=== PATIENT | female | born 1945 | race Caucasian/White ===

== ENCOUNTER 2016-12-28 21:36 | Inpatient (IN) ==
[2016-12-28] MEDS ORDERED: MORPHINE 2 MG/1 ML SYRINGE ONE (21:53)
[2016-12-28] MEDS ORDERED: ONDANSETRON 4 MG/2 ML VIAL IV STA (21:54)
[2016-12-28] MEDS ORDERED: NITROGLYCERIN 2% OINT 1 INCH/GM PACK TOP STA (21:54)
[2016-12-28] MEDS ORDERED: METOPROLOL TARTRATE 5 MG/5 ML VIAL IV STA ×2 (21:54→23:02)
[2016-12-28] MEDS ORDERED: ASPIRIN 325 MG TABLET PO STA (21:54)
[2016-12-28] MEDS ORDERED: MORPHINE 2 MG/1 ML SYRINGE IV STA (21:54)
[2016-12-28] MEDS ORDERED: ENOXAPARIN 80 MG/0.8 ML SYRINGE SUBCUT STA (21:58)
--- NOTE | 2016-12-28 21:58 | Emergency Department Note ---
Arrival - Arrival Chief Complaint: Chest Pain Stated Complaint: Chest pain ED Nursing Triage Note: Pain complains of chest pain with left arm weakness that started about thirty minutes ago. Denies shortness of breath. Patient received 4mg morphine, 1 ASA tab, and 4 SL nitro tabs by EMS+Nausea/vomiting. History of triple bypass surgery with 3 cardiac catheterization, 2 stents, HTN, cervical cancer, and chronic diarrhea. Patient is scheduled for a lower GI scope on . Dr. Ngo is patient's busser and Dr. Hamilton is patient's PCP. Mode of Arrival: Stretcher Limitations: No Limitations Source: Patient Time Seen by Provider: 12/28/16 21:54 - History of Present Illness HPI Narrative: This 71-year-old white female presents with onset of central chest pain radiating to left arm of onset about 30 minutes ago associated with nausea but no shortness of breath or sweats. The patient has a significant history of bypass surgery as well as multiple catheterizations and stents followed by Dr. Ngo. Currently she complains of a 5 out of 10 grade for pain. Onset (ago): minute(s) (Patient presents 30 minutes post onset of symptoms) Date of Last Menstrual Period: HYSTERECTOMY Allergies/Adverse Reactions: Allergies Allergy/AdvReac Type Severity Reaction Status Date / Time Sulfa (Sulfonamide AdvReac Nausea Verified 10/04/15 13:40 Antibiotics) Home Medications: Home Medications Medication Instructions Recorded Confirmed Type Carvedilol [Coreg] 6.25 mg PO BID 11/29/14 10/08/15 History Desloratadine [Clarinex] 5 mg PO DAILY PRN 11/29/14 10/08/15 History Furosemide Tab [Lasix Tab] 40 mg PO DAILY 11/29/14 10/08/15 History Isosorbide Mononitrate [Imdur] 120 mg PO DAILY 11/29/14 10/08/15 History Losartan Potassium 25 mg PO DAILY 11/29/14 10/08/15 History Magnesium Oxide [Magnesium] 400 mg PO BID 11/29/14 10/08/15 History Pantoprazole Tab [Protonix Tab] 40 mg PO DAILY 11/29/14 10/08/15 History Potassium Chloride [Klor-Con M20] 20 meq PO DAILY 11/29/14 10/08/15 History Ranolazine [Ranexa] 500 mg PO BID 11/29/14 10/08/15 History Sertraline HCl 100 mg PO DAILY 11/29/14 10/08/15 History Ticagrelor [Brilinta] 90 mg PO BID 11/29/14 10/08/15 History busPIRone [Buspar] 5 mg PO TID 03/11/15 10/08/15 History Aspirin EC Tab 81 mg PO BEDTIME 10/04/15 10/08/15 History Nitroglycerin [Nitroglycerin SL 0.4 mg SL Q5M PRN #100 tablet 10/05/15 10/08/15 Rx Tab] Atorvastatin Calcium 80 mg PO DAILY 10/08/15 10/08/15 History Medical,Surgical,& Family Hx - Medical History Cardio: History of: CAD, Hypertension, [place], Cardiovascular Problems Neurology: No history of: Seizures Endocrine: History of: Dyslipidemia Musculoskeletal: History of: Musculoskeletal Problems Reproductive: History of: Reproductive Problems - Surgical History Cardiac Surgeries: Sugical HX of: Femoral-Popliteal Bypass Graft, Cardiac Catheterization (x2 with 2 stents placed) HEENT Surgeries: Comment Only: Eye Surgery (cataract surg 10/2014) Abdominal Surgeries: Surgical HX of: Cholecystectomy Reproductive Surgeries: Surgical HX of;: Section, Gynecologic Surgery, Hysterectomy Orthopedic Surgeries: Surgical HX of;: Total Knee Replacement (l knee replacrment) - Family History Family History: Reports;: Family Cancer (mother, female reproductive, colon), Family Hypertension Denies;: Family Diabetes, Family Psychiatric Problems, Family Stroke - Social History Smoking Status: Never smoker Frequency of Alcohol Use: None Type of Drug Use: None Exam Vital Signs: Vital Signs Temperature 97.4 F L 12/28/16 21:36 Pulse Rate 77 12/28/16 21:36 Respiratory Rate 18 12/28/16 21:36 Blood Pressure 162/90 12/28/16 21:36 O2 Sat by Pulse Oximetry 100 12/28/16 21:36 Course - Reevaluation(s) Reevaluation #1: Discussed with patient the need for hospitalization. - Consultations Consultation #1: Discussed with Dr. Cherry who will admit to telemetry. Results - Labs CBC & BMP: 12/28/16 21:54 12/28/16 21:54 Labs: I have reviewed the laboratory noted the elevated troponin and BNP - Impressions EKG: Sinus rhythm at 66 with normal DC interval and QRS duration. Inferolateral ST abnormalities consistent with inferolateral ischemia. No acute injury pattern noted. - Diagnostic Findings Procedure: Chest x-ray: image reviewed by me, report reviewed by me (Status post median sternotomy, borderline cardiomegaly, clear lung barakat. No acute injury.) Disposition Clinical Impression: Inferolateral ischemia, Coronary artery disease/status post CABG, Hyperlipidemia, Hypertension Case discussed with: patient, patient's family Disposition: Still a Patient Condition: Guarded Time of Disposition: 23:06
[2016-12-28 22:01] LABS: Basophils % 0.5 % (0.0-0.8); Eosinophils # 0.2 10*3/uL (0.0-0.87); Eosinophils % 2.3 % (0.00-10.9); Hematocrit 40.7 VOL% (35.7-47.0); Hemoglobin 13.7 GM/DL (12.0-16.0); Immature Granulocytes % 0.1 %; Immature Granulocytes Absolute 0.01 #; Lymphocytes # 3.6 10*3/uL (1.4-4.0); Lymphocytes % 41.8 % (21.3-54.2); Mean Corpuscular HGB Conc 33.7 GM/DL (32-36); Mean Corpuscular Hemoglobin 30 PG (27-34); Mean Corpuscular Volume 88.9 FL (87-102); Mean Platelet Volume 9.8 FL (9.6-12.0); Monocytes # 0.7 10*3/uL (0.11-0.8); Monocytes % 7.5 % (1.7-12.7); Neutrophils # 4.1 10*3/uL (1.4-7.4); Neutrophils % 47.8 % (38.7-73.9); Platelet Count 268 T/CUMM (130-400); Red Blood Count 4.58 MC/CUMM (3.8-5.5); Red Cell Distribution Width 13.1 % (9.3-17.3); White Blood Count 8.7 T/CUMM (4-12)
[2016-12-28] MEDS ORDERED: METOPROLOL TARTRATE 5 MG/5 ML VIAL IV ONE ×2 (22:03→23:04)
[2016-12-28] MEDS ORDERED: ONDANSETRON 4 MG/2 ML VIAL ONE (22:03)
[2016-12-28] MEDS ORDERED: ENOXAPARIN 80 MG/0.8 ML SYRINGE SUBCUT ONE (22:03)
[2016-12-28] MEDS ORDERED: NITROGLYCERIN 2% OINT 1 INCH/GM PACK TOP ONE (22:03)
[2016-12-28 22:22] LABS: Troponin I Only 0.153 NG/ML (0.00-0.045)
[2016-12-28 22:23] LABS: Alanine Aminotransferase 22 U/L (13-56); Albumin 3.8 G/DL (3.4-5.0); Alkaline Phosphatase 80 U/L (45-117); Aspartate Amino Transferase 18 U/L (0-37); Blood Urea Nitrogen 17 MG/DL (7-18); Calcium 9.1 MG/DL (8.5-10.1); Glucose 127 MG/DL (74-106); Osmolality,Calculated 282.4 MOS/KG (273-304); Potassium 3.6 MMOL/L (3.5-5.1); Sodium 140 MMOL/L (136-145); Total Protein 6.6 G/DL (6.4-8.3)
[2016-12-28 22:26] LABS: Troponin I Only 0.135 NG/ML (0.00-0.045)
[2016-12-28] MEDS ORDERED: NITROGLYCERIN DRIP 50 MG/250 ML BOTTLE IV ONE (22:43)
[2016-12-28] MEDS ORDERED: NITROGLYCERIN DRIP 50 MG/250 ML BOTTLE IV SCH ×2 (23:30)
[2016-12-29 00:46] LABS: Apearance,Urine CLEAR (Clear); Bilirubin,Urine Negative (Negative); Blood, Urine Small mg/dL (Negative); Glucose,Urine (UA) Negative (Negative); Ketones,Urine Negative (Negative); Mucus,Urine Occasional /LPF (Occasional); Nitrite,Urine Negative (Negative); Protein,Urine Negative; RBC,Urine 5 /HPF (0-4); Squamous Epithelial Cell,Urine Occasional /HPF (0-10); Urine Color Yellow (Yellow); Urine Specific Gravity 1.012 (1.001-1.035); Urine Urobilinogen < 2.0 EU/DL (0.2-1.0); WBC,Urine <1 /HPF (0-6)
--- NOTE | 2016-12-29 02:19 | EKG Report ---
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
[2016-12-29] MEDS: ONDANSETRON 4 MG/2 ML VIAL IV PRN ×3 (02:32→18:32)
[2016-12-29] MEDS: HYDROmorphone 2 MG/1 ML VIAL IV PRN ×2 (02:51→18:01)
[2016-12-29 03:53] LABS: CKMB % 13.2 %
[2016-12-29 03:55] LABS: Troponin I Only 6.09 NG/ML (0.00-0.045)
--- NOTE | 2016-12-29 06:30 | EKG Report ---
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
[2016-12-29 07:07] LABS: CKMB % 14.6 %
[2016-12-29 07:17] LABS: Troponin I Only 7.65 NG/ML (0.00-0.045)
--- NOTE | 2016-12-29 07:40 | EKG Report ---
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
--- NOTE | 2016-12-29 08:16 | XRay Report ---
XR chest 1V portable Indication: Chest pain Comparison: Chest x-ray October 04, 2015 Technique: Single frontal view of the chest. Findings: Continued mild cardiomegaly status post sternotomy. There is some bilateral interstitial prominence suspicious for mild interstitial pulmonary edema. Visualized osseous and surrounding soft tissue structures appear grossly unchanged. IMPRESSION: As above. PROCEDURE INTERPRETED AT [facility] DEPARTMENT OF RADIOLOGY Final Report Signed by: Dr Armen Dunn
[2016-12-29] MEDS: ASPIRIN EC 81 MG TABLET PO SCH (08:33)
[2016-12-29] MEDS: CARVEDILOL 6.25 MG TABLET PO SCH ×2 (08:34→17:44)
--- NOTE | 2016-12-29 08:45 | XRay Report ---
Exam: XR chest 1V portable Date: 12/29/2016 4:00 AM Indication: Shortness of breath Comparison: 12/28/2016 Technical: AP Findings: Sternotomy wires are present. Mild shunt vascularity with interstitial edema. External cardiac leads are present. Mediastinum is intact. Bony structures are otherwise unremarkable. Impression: 1. Worsening radiographic findings with increasing interstitial edema with underlying cardiac enlargement previous sternotomy.. This could represent a component of cardiac decompensation PROCEDURE INTERPRETED AT [facility] DEPARTMENT OF RADIOLOGY Final Report Signed by: Dr. Rommel Bro
--- NOTE | 2016-12-29 08:49 | Cardiology History & Physical ---
Assessment and Plan - Time spent with patient Time spent with patient: Greater than 30 minutes (1) Non-ST elevated myocardial infarction Status: Acute Assessment and plan: SEE PLAN OF CARE LISTED BELOW. Current Visit: Yes (2) Hypertension Status: Chronic Assessment and plan: SEE PLAN OF CARE LISTED BELOW. Current Visit: Yes (3) Coronary artery disease Status: Chronic Assessment and plan: SEE PLAN OF CARE LISTED BELOW. Current Visit: No (4) Dyslipidemia Status: Chronic Assessment and plan: SEE PLAN OF CARE LISTED BELOW. Current Visit: No (5) History of coronary artery bypass graft Status: Chronic Assessment and plan: SEE PLAN OF CARE LISTED BELOW. Current Visit: No (6) History of coronary artery stent placement Status: Chronic Assessment and plan: SEE PLAN OF CARE LISTED BELOW. 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 Ngo PCP: Dr. Hamilton Ms. Zimmerman is a 71 year old female with known coronary artery disease, routinely followed by Dr. Ngo. Cardiac risk factors include: Known CAD, hypertension, dyslipidemia, family history of premature CAD and advanced age. Lifetime non-smoker. Past medical history includes: Vaginal cancer, now in remission. Patient is status post CABG with SVG to LAD, CONRO[place] graft to circumflex and right MAK to RCA. Heart catheterization was last performed in September 2015. At that time she was noted to have 2 of 3 grafts widely patent. Widely patent LAD graft stents. Severe left north fork coronary artery disease with an angiographically normal-appearing right coronary artery. Normal left ventricular size and function Most recent stress test was performed August 2016. This revealed no evidence of ischemia. Scan suggested low risk for future cardiovascular events. Normal LV systolic function. EF 73%. She last saw Dr. Ngo in the cardiology clinic October 2016. At that time, she reviewed recent results of echocardiogram. Echocardiogram revealed normal LV function, low- grade mitral and tricuspid insufficiency. Patient presented to [facility] yesterday evening with complaints of midsternal chest pain. She describes this pain as a heaviness type pain that radiates to her left arm. This began yesterday evening when she got up to make her some coffee. Associated with nausea, vomiting and diaphoresis. She took a sublingual nitro which did not relieve her pain. She summoned EMS as she felt that she needed to be further evaluated in the emergency department. Her pain was very similar as before when she underwent PCI. She is unable to identify any alleviating or aggravating factors. Unsure if there was exertional component as she says she was unable to walk during that time. When EMS arrived to her home she received morphine. She reports that after receiving morphine her pain was relieved. Altogether her pain lasted approximately 1 hour. She has been admitted under cardiology's service and housed in the ICU. Of note, she does tell me that she was told to hold her Brilinta for upcoming C scope. This has been on hold for approximately 1 week. Most recent PCI was September 2015. Patient seen and examined in the ICU. She is currently receiving IV nitroglycerin for pain control. Pain is well controlled this morning. Cardiac biomarkers are elevated. Troponin VII 0.6 this morning. CK-MB 85.8 with total creatinine kinase 584. Renal function is stable with creatinine of 1.1. Patient reports that her chest pain is well controlled currently. She did receive a 1 dose of therapeutic Lovenox in the emergency department. She is hemodynamically stable. I have discussed the risk and benefits of left heart catheterization with the patient. She is agreeable to proceed. I have discussed this patient with Dr. Guerra. She will be kept n.p.o. and will plan for heart catheterization today. She did receive therapeutic Lovenox. Continue dual antiplatelet therapy, beta blockade, lipid-lowering agent, nitrates and ARB. Further plan and addendum to follow per Dr. Guerra. IMPRESSION AND PLAN: 1. NON-ST ELEVATION PR - I have discussed the risk and benefits of left heart catheterization with the patient. She is agreeable to proceed. I have discussed this patient with Dr. Guerra. She will be kept n.p.o. and will plan for heart catheterization today. She did receive therapeutic Lovenox. Continue dual antiplatelet therapy, beta blockade, lipid-lowering agent, nitrates and ARB. Further plan and addendum to follow per Dr. Guerra 2. HISTORY OF CAD, STATUS POST CABG- Continue dual antiplatelet therapy, ARB, beta blockade, nitrates and lipid-lowering agent. 3. HYPERTENSION - Well controlled. Continue current plan of care. Will adjust medications as needed this hospitalization. 4. DYSLIPIDEMIA - Continue lipid-lowering agent. Lipid panel in the morning. Home Medications Medication Instructions Recorded Confirmed Type Carvedilol [Coreg] 6.25 mg PO BID 11/29/14 12/29/16 History Desloratadine [Clarinex] 5 mg PO DAILY PRN 11/29/14 12/29/16 History Furosemide Tab [Lasix Tab] 40 mg PO DAILY 11/29/14 12/29/16 History Isosorbide Mononitrate [Imdur] 120 mg PO DAILY 11/29/14 12/29/16 History Losartan Potassium 25 mg PO DAILY 11/29/14 12/29/16 History Pantoprazole Tab [Protonix Tab] 40 mg PO DAILY 11/29/14 12/29/16 History Potassium Chloride [Klor-Con M20] 20 meq PO DAILY 11/29/14 12/29/16 History Ranolazine [Ranexa] 500 mg PO BID 11/29/14 12/29/16 History Sertraline HCl 100 mg PO DAILY 11/29/14 12/29/16 History Ticagrelor [Brilinta] 90 mg PO BID 11/29/14 12/29/16 History busPIRone [Buspar] 5 mg PO TID 03/11/15 12/29/16 History Aspirin EC Tab 81 mg PO BEDTIME 10/04/15 12/29/16 History Nitroglycerin [Nitroglycerin SL 0.4 mg SL Q5M PRN #100 tablet 10/05/15 12/29/16 Rx Tab] Atorvastatin Calcium 10 mg PO DIRECTED 10/08/15 12/29/16 History Allergies Allergy/AdvReac Type Severity Reaction Status Date / Time Sulfa (Sulfonamide AdvReac Nausea Verified 10/04/15 13:40 Antibiotics) - Constitutional Constitutional: Present: as per HPI, fatigue, weakness. Absent: chills, fever(s ), frequent falls, headache(s), lethargy, malaise, weight gain, weight loss - Cardiovascular Cardiovascular: Present: as per HPI, chest pain at rest, diaphoresis, dyspnea, dyspnea on exertion, radiating jaw, neck or arm pain. Absent: edema, lightheadedness, orthopnea, palpitations, PND - Respiratory Respiratory: Present: as per HPI, dyspnea, dyspnea on exertion. Absent: cough, hemoptysis, wheezing, snoring, pain on inspiration, change in phlegm color - Gastrointestinal Gastrointestinal: Present: as per HPI, nausea, vomiting. Absent: coffee ground emesis, hematemesis, hematochezia, loose stools, melena - Neurological Neurological: Present: as per HPI. Absent: abnormal gait, abnormal speech, behavioral changes, dizziness, frequent falls, headache(s), memory loss, numbness, syncope Medical,Surgical,& Family Hx - Medical History Cardio: History of: CAD, Hypertension, PR, Cardiovascular Problems Psychological: History of: Anxiety Disorders, Depression Neurology: No history of: Seizures Endocrine: History of: Dyslipidemia Gastrointestinal: History of: GERD, GI Problems (chronic diarrhea) Musculoskeletal: History of: Musculoskeletal Problems Reproductive: History of: Reproductive Problems Other: History of: Cancer (vaginal in 1998 and 2003) - Surgical History Cardiac Surgeries: Sugical HX of: Femoral-Popliteal Bypass Graft, Cardiac Catheterization (x2 with 2 stents placed), Cardiac Surgery (CABG in 2012 at [facility] ) HEENT Surgeries: Surgical HX of: Eye Surgery (cataract surg to both eyes 10/2014 ) Abdominal Surgeries: Surgical HX of: Cholecystectomy Reproductive Surgeries: Surgical HX of;: Section, Gynecologic Surgery, Hysterectomy Orthopedic Surgeries: Surgical HX of;: Total Knee Replacement (left knee replacement) - Family History Family History: Reports;: Family Cancer (mother, female reproductive, colon), Family Hypertension Denies;: Family Diabetes, Family Psychiatric Problems, Family Stroke - Social History Smoking Status: Never smoker Frequency of Alcohol Use: None Type of Drug Use: None Marital Status: Lives With:: Alone Functional capacity: independent ambulation Cardiology Physical Exam - Constitutional Vitals: Vital Signs Temp Pulse Resp BP Pulse Ox 97.0 F L 81 14 151/92 94 L 12/29/16 04:00 12/29/16 07:00 12/29/16 07:00 12/29/16 07:15 12/29/16 07:00 Intake and Output 12/28/16 12/29/16 12/29/16 22:59 06:59 14:59 Intake Total 212 / 212 Output Total 0 / 0 Balance 212 / 212 Intake: IV 82 / 82 Nitroglycerin Drip 50 mg/ 82 / 82 250 ml50 mg In 250 ml @ 10 MCG/MIN 3 mls/hr IV TITRATE ROMAIN Rx#: [id number] Oral 130 / 130 Output: Urine 0 / 0 Other: Emesis 150 Weight 156 lb 159 lb 14.4 oz Exam: General: Appears well with no apparent distress. Pleasant and cooperative. Appears comfortable. HEENT: PERRL, normocephalic, atraumatic. Mucous membranes moist. No jaundice noted. Conjunctiva moist and clear, sclerae anicteric Neck: No JVD/HJR, no thyromegaly or lymphadenopathy noted. No carotid bruit appreciated Cardiac: Regular rate and rhythm. No murmur rub or gallop. Lungs: Clear to auscultation without accessory muscle use to assist the respiratory pattern. Not requiring oxygen. Abdomen: Soft, bowel sounds normoactive. Nontender and nondistended. No abdominal bruit or thrill noted. No masses noted. Extremities: No clubbing, cyanosis noted. No edema noted. Upper extremity pulses 2+. Lower extremity pulses 2+. Capillary refill less than 3 seconds. Skin: No unusual lesions or rashes. No skin breakdown appreciated. Neuro: Awake, alert and oriented 3. Moves all extremities well without hemiparesis or paralysis. No essential tremor is appreciated. Result/EKG - Labs CBC & BMP: 12/28/16 21:54 12/28/16 21:54 Lab Results: I have reviewed the past 24 hour labs Labs: Laboratory Results - last 24 hr 12/28/16 12/28/16 12/28/16 21:47 21:54 21:54 WBC 8.7 RBC 4.58 Hgb 13.7 Hct 40.7 MCV 88.9 MCH 30 MCHC 33.7 RDW 13.1 Plt Count 268 MPV 9.8 Neut % (Auto) 47.8 Lymph % (Auto) 41.8 [place] % (Auto) 7.5 Eos % (Auto) 2.3 Baso % (Auto) 0.5 Neut # (Auto) 4.1 Lymph # (Auto) 3.6 [place] # (Auto) 0.7 Eos # (Auto) 0.2 Baso # (Auto) 0.0 Immature Gran % 0.1 Nucleated RBC % 0.0 Immature Gran # 0.01 Nucleated RBCs # 0.00 Immature Plt Fraction 0.0 INR PT Patient/Control Mix Circ Anticoag PTT Sodium 140 Potassium 3.6 Chloride 105 Carbon Dioxide 26 Anion Gap 12.6 BUN 17 Creatinine 1.10 H GFR Calculation 52 BUN/Creatinine Ratio 15.00 Glucose 127 H Calculated Osmolality 282.4 Calcium 9.1 Total Bilirubin 0.40 AST 18 ALT 22 Alkaline Phosphatase 80 Total Creatine Kinase 58 57 CK-MB (CK-2) 2.3 2.2 CK and CKMB Interp Troponin I 0.153 H 0.135 H B-Natriuretic Peptide Total Protein 6.6 Albumin 3.8 Globulin 2.8 Albumin/Globulin Ratio 1.3 Urine Color Urine Appearance Urine pH Ur Specific [place] Urine Protein Urine Glucose (UA) Urine Ketones Urine Blood Urine Nitrate Urine Bilirubin Urine Urobilinogen Urine Leukocytes Urine RBC Urine WBC Ur Squamous Epith Cells Urine Mucus Ur Culture Indicated? 12/28/16 12/28/16 12/29/16 21:54 21:54 00:36 WBC RBC Hgb Hct MCV MCH MCHC RDW Plt Count MPV Neut % (Auto) Lymph % (Auto) [place] % (Auto) Eos % (Auto) Baso % (Auto) Neut # (Auto) Lymph # (Auto) [place] # (Auto) Eos # (Auto) Baso # (Auto) Immature Gran % Nucleated RBC % Immature Gran # Nucleated RBCs # Immature Plt Fraction INR 1.0 PT Patient/Control Mix 10.0 Circ Anticoag PTT 29.0 Sodium Potassium Chloride Carbon Dioxide Anion Gap BUN Creatinine GFR Calculation BUN/Creatinine Ratio Glucose Calculated Osmolality Calcium Total Bilirubin AST ALT Alkaline Phosphatase Total Creatine Kinase CK-MB (CK-2) CK and CKMB Interp Troponin I B-Natriuretic Peptide 199 H Total Protein Albumin Globulin Albumin/Globulin Ratio Urine Color Yellow Urine Appearance Clear Urine pH 5.0 Ur Specific [place] 1.012 Urine Protein Negative Urine Glucose (UA) Negative Urine Ketones Negative Urine Blood Small Urine Nitrate Negative Urine Bilirubin Negative Urine Urobilinogen < 2.0 H Urine Leukocytes Negative Urine RBC 5 Urine WBC <1 Ur Squamous Epith Cells Occasional Urine Mucus Occasional Ur Culture Indicated? Not indicated 12/29/16 12/29/16 02:24 04:40 WBC RBC Hgb Hct MCV MCH MCHC RDW Plt Count MPV Neut % (Auto) Lymph % (Auto) [place] % (Auto) Eos % (Auto) Baso % (Auto) Neut # (Auto) Lymph # (Auto) [place] # (Auto) Eos # (Auto) Baso # (Auto) Immature Gran % Nucleated RBC % Immature Gran # Nucleated RBCs # Immature Plt Fraction INR PT Patient/Control Mix Circ Anticoag PTT Sodium Potassium Chloride Carbon Dioxide Anion Gap BUN Creatinine GFR Calculation BUN/Creatinine Ratio Glucose Calculated Osmolality Calcium Total Bilirubin AST ALT Alkaline Phosphatase Total Creatine Kinase 431 H D 584 H D CK-MB (CK-2) 57.1 H D 85.5 H D CK and CKMB Interp 13.2 14.6 Troponin I 6.090 H D 7.650 H D B-Natriuretic Peptide Total Protein Albumin Globulin Albumin/Globulin Ratio Urine Color Urine Appearance Urine pH Ur Specific [place] Urine Protein Urine Glucose (UA) Urine Ketones Urine Blood Urine Nitrate Urine Bilirubin Urine Urobilinogen Urine Leukocytes Urine RBC Urine WBC Ur Squamous Epith Cells Urine Mucus Ur Culture Indicated?
[2016-12-29] MEDS ORDERED: TICAGRELOR 90 MG TABLET PO SCH (09:00)
[2016-12-29] MEDS ORDERED: RANOLAZINE 500 MG TABLET PO SCH (09:00)
[2016-12-29] MEDS ORDERED: LOSARTAN 25 MG TABLET PO SCH (09:00)
[2016-12-29] MEDS ORDERED: ASPIRIN 325 MG TABLET PO SCH (09:00)
[2016-12-29] MEDS ORDERED: ISOSORBIDE MONONITRATE 60 MG TABLET PO SCH (09:00)
[2016-12-29] MEDS ORDERED: PANTOPRAZOLE 40 MG TABLET PO SCH (09:00)
[2016-12-29] MEDS ORDERED: POTASSIUM CHLORIDE 20 MEQ TABLET PO SCH (09:00)
[2016-12-29] MEDS ORDERED: POTASSIUM CHLORIDE RIDER 10 MEQ in PREMIX 1 EACH IV PRN (09:01)
[2016-12-29] MEDS ORDERED: DIAZEPAM 5 MG TABLET PO ONE (09:01)
[2016-12-29] MEDS ORDERED: diphenhydrAMINE CAP 25 MG CAPSULE PO ONE (09:01)
[2016-12-29] MEDS ORDERED: MAGNESIUM SULF RIDER 2 GM in PREMIX 1 EACH IV PRN (09:01)
[2016-12-29] MEDS ORDERED: LIDOCAINE 1% 20 ML VIAL ONE (09:13)
[2016-12-29] MEDS ORDERED: HEPARIN/NACL 0.9% 2 UNITS/ML 1,000 ML IV ONE (09:13)
[2016-12-29] MEDS: SODIUM CHLORIDE 0.45% 1,000 ML IV SCH ×2 (09:14→17:15)
--- NOTE | 2016-12-29 09:18 | History and Physical Update ---
Sedation H&P Update - History and Physical H&P was reviewed, the patient examined and there: are no changes in the patients condition since last H&P was completed. - Dictation Physical: refer to H&P completed by admitting physician - Physical Exam Mental Status: alert and oriented Heart: regular rate and rhythm Lung: clear to auscultation Abdomen: within normal limits Vitals: within normal limits - Sedation Plan for Sedation: moderate ASA Class: III Airway Assessment: Class II: Soft palate, uvula, fauces visible
[2016-12-29] MEDS ORDERED: fentaNYL 100 MCG/2 ML VIAL ONE (09:24)
[2016-12-29] MEDS ORDERED: MIDAZOLAM 2 MG/2 ML VIAL ONE (09:24)
[2016-12-29] MEDS ORDERED: TICAGRELOR 90 MG TABLET ONE (09:41)
[2016-12-29] MEDS: FUROSEMIDE 40 MG TABLET PO SCH (09:48)
[2016-12-29] MEDS: ATORVASTATIN 80 MG TABLET PO SCH (09:48)
[2016-12-29] MEDS ORDERED: TIROFIBAN 5,000 MCG/100 ML PREMIX IV ONE (09:51)
[2016-12-29] MEDS ORDERED: ENOXAPARIN 60 MG/0.6 ML SYRINGE ONE (10:01)
[2016-12-29] MEDS ORDERED: NITROGLYCERIN SL 0.4 MG TABLET SL PRN (10:37)
[2016-12-29] MEDS ORDERED: LORATADINE 10 MG TABLET PO PRN (10:37)
--- NOTE | 2016-12-29 15:45 | ECHO Report ---
Odalys Zimmerman Exam Date: 12/29/2016 13:37 Referring Physician: Technologist: Mery Perez Age: 71 Ht (in): 65 Wt (lb): 159 Gender: F Exam Location: [facility] Echo Indications: AMI, chest pain BP: 132 / 71 HR: 85 Rhythm: Sinus Technical Quality: Average IMPRESSIONS Left ventricular ejection fraction is estimated at 40%. There is mid to distal anterior anteroseptal and anterolateral hypokinesis. Tricuspid regurgitation velocities suggest a RVSP of 36mmHg + RAP. MEASUREMENTS (Male / Female) Normal Values 2D ECHO LV Diastolic Diameter PLAX 4.3 cm 4.2 - 5.9 / 3.9 - 5.3 cm LV Systolic Diameter PLAX 3.3 cm LV Fractional Shortening PLAX 22.4 % IVS Diastolic Thickness 1.0 cm 0.6 - 1.0 / 0.6 - 0.9 cm LVPW Diastolic Thickness 1.1 cm 0.6 - 1.0 / 0.6 - 0.9 cm Aortic Root Diameter 2.2 cm LA Systolic Diameter LX 3.7 cm 3.0 - 4.0 / 2.7 - 3.8 cm DOPPLER TR Peak Velocity 299.0 cm/s TR Peak Gradient 35.8 mmHg FINDINGS Left Ventricle Normal left ventricular cavity size. Mild concentric left ventricular hypertrophy with Grade I diastolic dysfunction. Left ventricular ejection fraction is estimated at 40%. There is mid to distal anterior anteroseptal and anterolateral hypokinesis. Right Ventricle Normal right ventricular size. Right Atrium Normal right atrial size. Left Atrium Normal left atrial size. Mitral Valve Mildly thickened mitral valve with mild mitral regurgitation. Aortic Valve The aortic valve is trileaflet and has normal motion. Tricuspid Valve Morphologically normal tricuspid valve. Mild tricuspid valve regurgitation. Tricuspid regurgitation velocities suggest a RVSP of 36mmHg + RAP. Pulmonic Valve Morphologically normal pulmonic valve. Pericardium No pericardial effusion. Aorta Normal size aortic root and proximal ascending aorta. Radha Guerra (Electronically Signed) Final Date: 29 December 2016 15:44
[2016-12-29] MEDS: busPIRone 5 MG TABLET PO SCH ×2 (15:48→21:20)
[2016-12-29] MEDS: TICAGRELOR 90 MG TABLET PO SCH (21:20)
[2016-12-29] MEDS: RANOLAZINE 500 MG TABLET PO SCH (21:20)
[2016-12-30 05:26] LABS: Basophils % 0.3 % (0.0-0.8); Eosinophils % 0.4 % (0.00-10.9); Hematocrit 39.9 VOL% (35.7-47.0); Hemoglobin 13.2 GM/DL (12.0-16.0); Immature Granulocytes % 0.4 %; Immature Granulocytes Absolute 0.04 #; Lymphocytes # 1.1 10*3/uL (1.4-4.0); Lymphocytes % 10.3 % (21.3-54.2); Mean Corpuscular HGB Conc 33.1 GM/DL (32-36); Mean Corpuscular Hemoglobin 30 PG (27-34); Mean Corpuscular Volume 89.9 FL (87-102); Mean Platelet Volume 9.8 FL (9.6-12.0); Monocytes # 1.2 10*3/uL (0.11-0.8); Monocytes % 11.2 % (1.7-12.7); Neutrophils # 8.4 10*3/uL (1.4-7.4); Neutrophils % 77.4 % (38.7-73.9); Platelet Count 198 T/CUMM (130-400); Red Blood Count 4.44 MC/CUMM (3.8-5.5); Red Cell Distribution Width 13.3 % (9.3-17.3); White Blood Count 10.9 T/CUMM (4-12)
[2016-12-30 05:54] LABS: Calcium 8.6 MG/DL (8.5-10.1); Osmolality,Calculated 273.7 MOS/KG (273-304); Potassium 3.6 MMOL/L (3.5-5.1)
[2016-12-30 06:09] LABS: Risk Ratio 3.48; VLDL CHOLESTEROL 29.2 MG/DL
--- NOTE | 2016-12-30 06:47 | EKG Report ---
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
[2016-12-30] MEDS: SODIUM CHLORIDE 0.45% 1,000 ML IV SCH (07:00)
--- NOTE | 2016-12-30 07:43 | Cardiology Progress Note ---
<Kenzie Shepard - Last Filed: 12/30/16 07:48> Assessment and Plan (1) Non-ST elevated myocardial infarction Status: Resolved Assessment and plan: SEE PLAN OF CARE LISTED BELOW. Current Visit: Yes (2) Hypertension Status: Chronic Assessment and plan: SEE PLAN OF CARE LISTED BELOW. Current Visit: Yes (3) Coronary artery disease Status: Chronic Assessment and plan: SEE PLAN OF CARE LISTED BELOW. Current Visit: No (4) Dyslipidemia Status: Chronic Assessment and plan: SEE PLAN OF CARE LISTED BELOW. Current Visit: No (5) History of coronary artery bypass graft Status: Chronic Assessment and plan: SEE PLAN OF CARE LISTED BELOW. Current Visit: No (6) History of coronary artery stent placement Status: Chronic Assessment and plan: SEE PLAN OF CARE LISTED BELOW. Current Visit: No (7) Tachycardia Status: Acute Assessment and plan: SEE PLAN OF CARE LISTED BELOW. Current Visit: Yes (8) Ischemic cardiomyopathy Status: Acute Assessment and plan: SEE PLAN OF CARE LISTED BELOW. Current Visit: Yes (9) Diarrhea Status: Chronic Assessment and plan: SEE PLAN OF CARE LISTED BELOW. 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 Joss Ngo PCP: Dr. Alfonso GERARDO Ms. Zimmerman is a 71 year old female with known coronary artery disease, routinely followed by Dr. Ngo. Cardiac risk factors include: Known CAD, hypertension, dyslipidemia, family history of premature CAD and advanced age. Patient is status post CABG with SVG to LAD, CONROY graft to circumflex and right MAK to RCA. Heart catheterization was last performed in September 2015. At that time she was noted to have 2 of 3 grafts widely patent. Widely patent LAD graft stents. Severe left [place] coronary artery disease with an angiographically normal-appearing right coronary artery. Normal left ventricular size and function. Most recent stress test was performed August 2016. This revealed no evidence of ischemia. Scan suggested low risk for future cardiovascular events. Normal LV systolic function. EF 73%. Echocardiogram 2016 revealed normal LV function, low-grade mitral and tricuspid insufficiency. Patient presented to [facility] with non-ST elevation NV. Patient was subsequently taken to the catheterization lab per Dr. Radha Guerra December 29, 2016 where she received stent placement to coronary graft. See full heart catheterization report. Echocardiogram was performed yesterday and revealed reduced LV systolic function with ejection fraction 40%. Mid to distal anteroseptal and anterior lateral hypokinesis. 2016: Patient was seen and examined in the ICU. She is doing well this morning without points of chest pain, heaviness or tightness. Right groin soft without bleeding, hematoma and bruit. Distal pulses present. Labs reviewed. Troponin is trending down. This morning it is 20.5. We will transfer patient to the telemetry floor and monitor her overnight. We will consult gastroenterology as she continues to complain of diarrhea. This has been an ongoing problem for her and reports that she has 9-10 bowel movements a day. She was scheduled for C scope later this week. Her Brilinta was placed on hold a few days before in preparation for this. Her Brilinta was reinitiated this hospitalization and she received stent placement to coronary graft yesterday evening. Her Brilinta cannot be safely held. Continue dual antiplatelet therapy, ARB, beta blockade, nitrates and lipid-lowering agent. She is slightly tachycardic this morning, sinus. Her beta-blockade dose has been increased. I will further discuss with Dr. Guerra and await his additional recommendations. IMPRESSION AND PLAN: 1. NON-ST ELEVATION NV - Patient is now status post revascularization per [facility] yesterday. No complaints of chest pain, heaviness or tightness. Right groin soft without bleeding, hematoma or bruit. Continue dual antiplatelet therapy, ARB, beta blockade, nitrates and lipid-lowering agent. She will be transferred upstairs to the telemetry unit today. Hopeful for discharge home tomorrow if she continues to improve. 2. HISTORY OF CAD, STATUS POST CABG- Continue dual antiplatelet therapy, ARB, beta blockade, nitrates and lipid-lowering agent. 3. HYPERTENSION - Well controlled. Patient is tachycardic this morning. I will increase her beta blockade dose. Continue to monitor and adjust medications accordingly. 4. DYSLIPIDEMIA - Lipid panel reviewed. Statin dosage changed to high intensity upon admission. Repeat lipid panel in 4-6 weeks. 5. DIARRHEA - Patient reports that she has 9-10 bowel movements a day. This is been going on for quite some time. She is a patient of Dr. Donnelly name was planned for C scope later this week. After discussing with Dr. Guerra, we will consult Dr. Donnelly for further recommendations. 6. ISCHEMIC CARDIOMYOPATHY - Left ventricular ejection fraction is estimated at 40% per echocardiogram yesterday. This has declined from her last echocardiogram performed October 2016 which revealed preserved LV function. Patient is on good medication regimen with beta blockade, ARB and diuretics. These will be continued. She will need repeat echocardiogram in approximately 3 months to reassess LV function. 7. TACHYCARDIA - Beta blockade dosage has been increased. Exam (Progress Note) - Constitutional Vitals: Period Temp Pulse Resp BP Sys/Montes Pulse Ox Last 24 Hr 97.1 F-98.1 F 81-118 18-94 96-168/53-98 90-94 Exam: General: Appears well with no apparent distress. Pleasant and cooperative. Appears comfortable. HEENT: PERRL, normocephalic, atraumatic. Mucous membranes moist. No jaundice noted. Conjunctiva moist and clear, sclerae anicteric Neck: No JVD/HJR, no thyromegaly or lymphadenopathy noted. No carotid bruit appreciated Cardiac: Regular rate and rhythm. No murmur rub or gallop. Lungs: Clear to auscultation without accessory muscle use to assist the respiratory pattern. Not requiring oxygen. Abdomen: Soft, bowel sounds normoactive. Nontender and nondistended. No abdominal bruit or thrill noted. No masses noted. Extremities: No clubbing, cyanosis noted. No edema noted. Upper extremity pulses 2+. Lower extremity pulses 2+. Capillary refill less than 3 seconds. Right groin soft without bleeding, hematoma and bruit. Distal pulses 2+. Skin: No unusual lesions or rashes. No skin breakdown appreciated. Neuro: Awake, alert and oriented 3. Moves all extremities well without hemiparesis or paralysis. No essential tremor is appreciated. Result/EKG - Labs CBC & BMP: 12/30/16 04:54 12/30/16 04:54 Lab Results: I have reviewed the past 24 hour labs Labs: Laboratory Results - last 24 hr 12/29/16 12/29/16 12/30/16 10:57 18:38 04:54 WBC 10.9 RBC 4.44 Hgb 13.2 Hct 39.9 MCV 89.9 MCH 30 MCHC 33.1 RDW 13.3 Plt Count 198 D MPV 9.8 Neut % (Auto) 77.4 H Lymph % (Auto) 10.3 L [place] % (Auto) 11.2 Eos % (Auto) 0.4 Baso % (Auto) 0.3 Neut # (Auto) 8.4 H Lymph # (Auto) 1.1 L [place] # (Auto) 1.2 H Eos # (Auto) 0.0 Baso # (Auto) 0.0 Immature Gran % 0.4 Nucleated RBC % 0.0 Immature Gran # 0.04 Nucleated RBCs # 0.00 Immature Plt Fraction 0.0 Sodium Potassium Chloride Carbon Dioxide Anion Gap BUN Creatinine GFR Calculation BUN/Creatinine Ratio Glucose Calculated Osmolality Calcium Magnesium Troponin I 25.500 H D 38.700 H D Triglycerides Cholesterol LDL Cholesterol VLDL Cholesterol HDL Cholesterol Heart Disease Risk Ratio 12/30/16 12/30/16 12/30/16 04:54 04:54 04:54 WBC RBC Hgb Hct MCV MCH MCHC RDW Plt Count MPV Neut % (Auto) Lymph % (Auto) [place] % (Auto) Eos % (Auto) Baso % (Auto) Neut # (Auto) Lymph # (Auto) [place] # (Auto) Eos # (Auto) Baso # (Auto) Immature Gran % Nucleated RBC % Immature Gran # Nucleated RBCs # Immature Plt Fraction Sodium 138 Potassium 3.6 Chloride 102 Carbon Dioxide 28 Anion Gap 11.6 BUN 8 Creatinine 0.70 GFR Calculation 91 BUN/Creatinine Ratio 11.00 Glucose 115 H Calculated Osmolality 273.7 Calcium 8.6 Magnesium 2.0 Troponin I 20.500 H D Triglycerides 146 Cholesterol 167 LDL Cholesterol 104.0 VLDL Cholesterol 29.2 HDL Cholesterol 48 Heart Disease Risk Ratio 3.48 Quality Measures - VTE Contraindication to Pharmacological VTE Prophylaxis: High Risk of Bleeding Specialty Discharge - Follow Up or Referrals <Radha Guerra - Last Filed: 12/30/16 08:35> Exam (Progress Note) - Constitutional Vitals: Period Temp Pulse Resp BP Sys/Montes Pulse Ox Last 24 Hr 97.4 F-98.1 F 81-118 18-94 96-168/53-94 90-94 Result/EKG - Labs CBC & BMP: 12/30/16 04:54 12/30/16 04:54 Labs: Laboratory Results - last 24 hr 12/29/16 12/29/16 12/30/16 10:57 18:38 04:54 WBC 10.9 RBC 4.44 Hgb 13.2 Hct 39.9 MCV 89.9 MCH 30 MCHC 33.1 RDW 13.3 Plt Count 198 D MPV 9.8 Neut % (Auto) 77.4 H Lymph % (Auto) 10.3 L [place] % (Auto) 11.2 Eos % (Auto) 0.4 Baso % (Auto) 0.3 Neut # (Auto) 8.4 H Lymph # (Auto) 1.1 L [place] # (Auto) 1.2 H Eos # (Auto) 0.0 Baso # (Auto) 0.0 Immature Gran % 0.4 Nucleated RBC % 0.0 Immature Gran # 0.04 Nucleated RBCs # 0.00 Immature Plt Fraction 0.0 Sodium Potassium Chloride Carbon Dioxide Anion Gap BUN Creatinine GFR Calculation BUN/Creatinine Ratio Glucose Calculated Osmolality Calcium Magnesium Troponin I 25.500 H D 38.700 H D Triglycerides Cholesterol LDL Cholesterol VLDL Cholesterol HDL Cholesterol Heart Disease Risk Ratio 12/30/16 12/30/16 12/30/16 04:54 04:54 04:54 WBC RBC Hgb Hct MCV MCH MCHC RDW Plt Count MPV Neut % (Auto) Lymph % (Auto) [place] % (Auto) Eos % (Auto) Baso % (Auto) Neut # (Auto) Lymph # (Auto) [place] # (Auto) Eos # (Auto) Baso # (Auto) Immature Gran % Nucleated RBC % Immature Gran # Nucleated RBCs # Immature Plt Fraction Sodium 138 Potassium 3.6 Chloride 102 Carbon Dioxide 28 Anion Gap 11.6 BUN 8 Creatinine 0.70 GFR Calculation 91 BUN/Creatinine Ratio 11.00 Glucose 115 H Calculated Osmolality 273.7 Calcium 8.6 Magnesium 2.0 Troponin I 20.500 H D Triglycerides 146 Cholesterol 167 LDL Cholesterol 104.0 VLDL Cholesterol 29.2 HDL Cholesterol 48 Heart Disease Risk Ratio 3.48
--- NOTE | 2016-12-30 08:13 | Cardiac Catheterization ---
Date of Procedure:: 12/30/16 Pre-op Diagnosis: Non-ST elevation myocardial infarction Post-op diagnosis: other (Non-ST elevation myocardial infarction secondary to 100% occlusion ostial of the free TRICIA to the LAD in-stent restenosis and thrombosis post PCI there is KAITLIN-3 flow and 0% residual stenosis) Procedure: Procedures: 1. Left heart catheterization resting hemodynamics 2. Selective left and right coronary angiography 3. Selective MAK graft injection to the first obtuse marginal 4 Selective TRICIA as a free graft injection to the LAD After consent was taken from the patient. Taken to the catheterization lab for left heart catheterization via the femoral artery. Time out was taken and recorded. 1% lidocaine was infiltrated in the skin and subcutaneous tissue overlying the right femoral artery. Modified Seldinger technique and an 18- gauge MEDL Mobile needle was used for access to the right femoral artery. An 0.35 J- wire was advanced through the needle into the central aorta under fluoroscopy. A small skin was made and a 6 Romanian sheath was placed over the wire. The sheath was aspirated and flushed. A JL46 was advanced over the wires in the left main coronary artery was selectively engaged. Multiple orthogonal views of the left system were obtained. The catheter was then exchanged over the wire. The sheath was aspirated and flushed. A JR4 catheter was advanced over the wire into the central aorta. The right coronary was selectively engaged and orthogonal views of the right coronary artery were obtained. The catheter was then exchanged over the wire, the sheath was aspirated and flushed. At this time an angled pigtail catheter was advanced across the aortic valve into the ventricle. Pressure measurements were obtained and pullback measurements were performed. The gas substation operator reviewed the films. The room set up for the intervention mode. Because of the possibility of thrombosis and recent cessation of dual antiplatelet therapy Aggrastat was initiated and 30 mg's IV Lovenox were given on the background of milligrams kilogram subcu every 12 greater than 12 hours. At this time and LCB guide was used to engage the graft. A JR4 guide was used with the wire would not advance and there was inadequate support, and AL-1 guide was also used but would not engage adequately. Ultimately LCB was successful and the provider wire was advanced into the proximal vessel would not advance further a 2 oh by 12 mm balloon was used for support and the wire was advanced into the distal LAD. At this time multiple inflations were made throughout the graft after it was [place] and high-grade stenosis stenotic areas throughout the entire length of the previously deployed stents. Once KAITLIN-3 flow was established standing from the distal to the proximal and ostial portion of the graft with a 3.0 x 38 and overlapping with a 3.0 x 28 mm Synergy drug-eluting stent was used to reconstruct the graft. The graft stents were then postdilated to 22 mario with a 3 oh by 20 NC balloon with excellent angiographic result The sheath was aspirated and flushed and a right femoral and iliac angiography was performed. The access site was amenable for closure and the area was reprepped with ChloraPrep and draped with sterile towels. The Mynx closure device was used in standard technique. There was no hematoma and distal pulses were good. FINDINGS: LV: 158/12 LVEDP: 19 Ao: 160/75 EF: Not assessed LM: Angiographically normal LAD: The left anterior descending artery 100% occluded in the proximal segment after leaving the left main. LCx: The left circumflex artery is patent there is a 80% stenosis in the AV groove portion of left circumflex there is also first obtuse marginal has a stenosis of approximately 90%. This vessel has been grafted as below CONROY as a graft in situ to the first obtuse marginal is widely patent. It gives retrograde flow into the AV groove portion of left circumflex and into the distal obtuse marginal TRICIA as a transplanted graft is 100% stenosed proximally with thrombus and long in-stent restenosis. Post PCI's KAITLIN III flow with 0% stenosis pre-PCI there was KAITLIN 0 flow and 100% stenosis proximally RCA: Right coronary is a large dominant vessel there is possibly 40% stenosis after the takeoff of the PDA and posterior lateral branch RFA/LILI: There is a very focal ringlike stenosis in the right femoral artery just above the access point. This is unchanged from previous case. Assessment: 1. 100% thrombotic occlusion with thrombus plaque in the previously deployed stents in the TRICIA graft from the aorta to the LAD status post successful PCI with CAM[place] 2 PLAN: 1. Monitored in the ICU beta-maura Cardiac [facility]hab LILLIANA inhibitor transthoracic echo statins and dual antiplatelet therapy for a minimum of 1 year Implants: 3.0 x 38 mm Synergy drug-eluting stent and overlapping proximally with a 3.0 by 28 mm Synergy drug-eluting stent Anesthesia: moderate conscious sedation Surgeon / Physician: Radha Guerra Inhalation Therapy Aide: none Estimated blood loss: none Specimens: none sent Condition: stable Disposition: ICU/CCU - Medications / Follow-up
[2016-12-30] MEDS: CARVEDILOL 12.5 MG TABLET PO SCH ×2 (08:50→16:27)
[2016-12-30] MEDS: PANTOPRAZOLE 40 MG TABLET PO SCH (08:51)
[2016-12-30] MEDS: busPIRone 5 MG TABLET PO SCH ×3 (08:52→21:17)
[2016-12-30] MEDS: TICAGRELOR 90 MG TABLET PO SCH ×2 (08:52→21:17)
[2016-12-30] MEDS: ASPIRIN EC 81 MG TABLET PO SCH (08:52)
[2016-12-30] MEDS: ATORVASTATIN 80 MG TABLET PO SCH (08:53)
[2016-12-30] MEDS: POTASSIUM CHLORIDE 20 MEQ TABLET PO SCH (08:53)
[2016-12-30] MEDS: FUROSEMIDE 40 MG TABLET PO SCH (08:53)
[2016-12-30] MEDS: RANOLAZINE 500 MG TABLET PO SCH ×2 (08:54→21:17)
[2016-12-30] MEDS: SERTRALINE 100 MG TABLET PO SCH (08:54)
[2016-12-30] MEDS: ISOSORBIDE MONONITRATE 30 MG TABLET PO SCH (08:57)
[2016-12-30] MEDS: LOSARTAN 25 MG TABLET PO SCH (08:58)
[2016-12-30] MEDS ORDERED: ISOSORBIDE MONONITRATE 60 MG TABLET PO SCH (09:00)
--- NOTE | 2016-12-30 12:41 | Gastrointestinal Consult Note ---
Assessment and Plan (1) Diarrhea Status: Chronic Assessment and plan: 12/30-3 year history of multiple diarrhea stools daily without associated symptoms other than nausea at times. Last colonoscopy 5 years ago. Noted to be scheduled for outpatient colonoscopy today however events noted as below with cardiac catheterization and resumption of Brilinta. History of negative stool studies in the past. Plan an addendum to followed by Dr. Donnelly. Current Visit: Yes History of Present Illness Chief complaint: Diarrhea History of present illness: Ms. Zimmerman is a 71 year old female who was admitted to the hospital with complaints of chest pain. Patient has a prior history of CAD, hypertension and dyslipidemia. Patient states she was in her usual state of health until 2 days ago when she had onset of chest pain the patient describes a heaviness that radiated to her arm. It was associated with nausea and vomiting as well as diaphoresis and was unrelieved by nitroglycerin. At that time she came to the emergency room for further evaluation and was then found to have elevated cardiac enzymes. Patient underwent heart catheterization this morning and was found to have a non-STEMI with 100% occlusion of the LAD with stent placement. Patient was on Brilinta prior to admission however this was being held for a colonoscopy that was initially scheduled for today as outpatient. Her anticoagulant has now been restarted and now inability to hold or discontinue this for 1 year. Patient states that she is seen Dr. Donnelly and was scheduled to have a colonoscopy on today. Her last colonoscopy was approximately 5 years ago with no abnormal findings reported other than a colon polyp removed. She states that approximately 3 years ago she began having diarrhea. She states that she also had her gallbladder out not long after her diarrhea began however states that it did persist prior to this. She states that she is having approximately 8 stools a day with at times with incontinence. She denies any nocturnal defecation. She denies any associated abdominal pain or cramping. She does report that she has had off-and-on nausea that is almost on a daily basis without vomiting. She denies any weight loss associated with the diarrhea. Denies any melena or hematochezia with diarrhea. She has had stool studies checked in the past by Dr. Hamilton and states they were negative. She denies taking any [id number] medications or supplements. She has had an EGD in the past but cannot recall when however denies any history of peptic ulcer disease. She denies any GERD or dysphagia. Denies any worsening dyspepsia. Home Medications Medication Instructions Recorded Confirmed Type Carvedilol [Coreg] 6.25 mg PO BID 11/29/14 12/29/16 History Desloratadine [Clarinex] 5 mg PO DAILY PRN 11/29/14 12/29/16 History Furosemide Tab [Lasix Tab] 40 mg PO DAILY 11/29/14 12/29/16 History Isosorbide Mononitrate [Imdur] 120 mg PO DAILY 11/29/14 12/29/16 History Losartan Potassium 25 mg PO DAILY 11/29/14 12/29/16 History Pantoprazole Tab [Protonix Tab] 40 mg PO DAILY 11/29/14 12/29/16 History Potassium Chloride [Klor-Con M20] 20 meq PO DAILY 11/29/14 12/29/16 History Ranolazine [Ranexa] 500 mg PO BID 11/29/14 12/29/16 History Sertraline HCl 100 mg PO DAILY 11/29/14 12/29/16 History Ticagrelor [Brilinta] 90 mg PO BID 11/29/14 12/29/16 History busPIRone [Buspar] 5 mg PO TID 03/11/15 12/29/16 History Aspirin EC Tab 81 mg PO BEDTIME 10/04/15 12/29/16 History Nitroglycerin [Nitroglycerin SL 0.4 mg SL Q5M PRN #100 tablet 10/05/15 12/29/16 Rx Tab] Atorvastatin Calcium 10 mg PO DIRECTED 10/08/15 12/29/16 History Allergies Allergy/AdvReac Type Severity Reaction Status Date / Time Sulfa (Sulfonamide AdvReac Nausea Verified 10/04/15 13:40 Antibiotics) Medical,Surgical,& Family Hx - Medical History Cardio: History of: CAD, Hypertension, [place], Cardiovascular Problems Psychological: History of: Anxiety Disorders, Depression Neurology: No history of: Seizures Endocrine: History of: Dyslipidemia Gastrointestinal: History of: GERD, GI Problems (chronic diarrhea) Musculoskeletal: History of: Musculoskeletal Problems Reproductive: History of: Reproductive Problems Other: History of: Cancer (vaginal in 1998 and 2003) - Surgical History Cardiac Surgeries: Sugical HX of: Femoral-Popliteal Bypass Graft, Cardiac Catheterization (x2 with 2 stents placed), Cardiac Surgery (CABG in 2013 at [facility] ) HEENT Surgeries: Surgical HX of: Eye Surgery (cataract surg to both eyes 10/2014 ) Abdominal Surgeries: Surgical HX of: Cholecystectomy Reproductive Surgeries: Surgical HX of;: Section, Gynecologic Surgery, Hysterectomy Orthopedic Surgeries: Surgical HX of;: Total Knee Replacement (left knee replacement) - Family History Family History: Reports;: Family Cancer (mother, female reproductive, colon), Family Hypertension Denies;: Family Diabetes, Family Psychiatric Problems, Family Stroke - Social History Smoking Status: Never smoker Frequency of Alcohol Use: None Type of Drug Use: None 12 point system: reviewed and no additional remarkable complaints except as stated - Constitutional Constitutional: Present: as per HPI - EENT Eyes: Present: as per HPI Ears: Present: as per HPI Nose, mouth and throat: Present: as per HPI - Cardiovascular Cardiovascular: Present: as per HPI, chest pain at rest, dyspnea - Respiratory Respiratory: Present: as per HPI - Gastrointestinal Gastrointestinal: Present: as per HPI, diarrhea, nausea - Genitourinary Genitourinary: Present: as per HPI - Musculoskeletal Musculoskeletal: Present: as per HPI - Neurological Neurological: Present: as per HPI - Psychiatric Psychiatric: Present: as per HPI - Endocrine Endocrine: Present: as per HPI - Hematologic/Lymphatic Hematologic/Lymphatic: Present: as per HPI Exam - Constitutional Vitals: Period Temp Pulse Resp BP Sys/Montes Pulse Ox Last 24 Hr 97.4 F-98.1 F 83-118 18-94 96-138/49-94 90-96 General appearance: normal weight, no acute distress - Head Head exam: Present: normal inspection, normocephalic - Eye Eye exam: Present: other (Lids and conjunctivae are unremarkable). Absent: scleral icterus - ENT ENT exam: Present: normal exam, normal oropharynx - Neck Neck exam: Present: normal inspection - Respiratory Respiratory exam: Present: clear to auscultation bilaterally. Absent: rales, rhonchi, wheezes - Cardiovascular Cardiovascular exam: Present: regular rate and rhythm. Absent: diastolic murmur , JVD, systolic murmur - GI/Abdominal GI/Abdominal exam: Present: normal bowel sounds, soft. Absent: ascites, distended, mass, organomegaly, tenderness - Extremities Exam Extremities exam: Present: normal inspection, full ROM - Back Exam Back exam: Present: normal inspection - Neurological Exam Neurological exam: Present: alert, oriented X3 - Psychiatric Psychiatric exam: Present: normal affect, normal mood - Skin Skin exam: Present: normal color, warm, dry Results - Labs CBC & BMP: 12/30/16 04:54 12/30/16 04:54 Lab Results: I have reviewed the past 24 hour labs Quality Measures - VTE Contraindication to Pharmacological VTE Prophylaxis: High Risk of Bleeding Specialty Discharge - Follow Up or Referrals
[2016-12-30] MEDS ORDERED: LOPERAMIDE 2 MG CAPSULE PO ONE (15:34)
[2016-12-31 03:59] LABS: Basophils % 0.2 % (0.0-0.8); Eosinophils # 0.1 10*3/uL (0.0-0.87); Eosinophils % 1.1 % (0.00-10.9); Hematocrit 35.8 VOL% (35.7-47.0); Hemoglobin 11.8 GM/DL (12.0-16.0); Immature Granulocytes % 0.2 %; Immature Granulocytes Absolute 0.02 #; Lymphocytes % 11.5 % (21.3-54.2); Mean Corpuscular Hemoglobin 29 PG (27-34); Mean Corpuscular Volume 89.3 FL (87-102); Mean Platelet Volume 9.8 FL (9.6-12.0); Monocytes % 11.9 % (1.7-12.7); Neutrophils # 6.3 10*3/uL (1.4-7.4); Neutrophils % 75.1 % (38.7-73.9); Platelet Count 177 T/CUMM (130-400); Red Blood Count 4.01 MC/CUMM (3.8-5.5); Red Cell Distribution Width 13.4 % (9.3-17.3); White Blood Count 8.4 T/CUMM (4-12)
[2016-12-31 04:31] LABS: Calcium 8.2 MG/DL (8.5-10.1); Magnesium 2.2 MG/DL (1.8-2.4); Osmolality,Calculated 282.1 MOS/KG (273-304); Potassium 2.8 MMOL/L (3.5-5.1)
[2016-12-31] MEDS: RANOLAZINE 500 MG TABLET PO SCH (09:22)
[2016-12-31] MEDS: TICAGRELOR 90 MG TABLET PO SCH (09:22)
[2016-12-31] MEDS: ATORVASTATIN 80 MG TABLET PO SCH (09:22)
[2016-12-31] MEDS: POTASSIUM CHLORIDE 20 MEQ TABLET PO SCH ×5 (09:22→15:34)
[2016-12-31] MEDS: ISOSORBIDE MONONITRATE 30 MG TABLET PO SCH (09:22)
[2016-12-31] MEDS: ASPIRIN EC 81 MG TABLET PO SCH (09:22)
[2016-12-31] MEDS: busPIRone 5 MG TABLET PO SCH ×2 (09:23→14:47)
[2016-12-31] MEDS: CARVEDILOL 12.5 MG TABLET PO SCH (09:23)
[2016-12-31] MEDS: LOSARTAN 25 MG TABLET PO SCH (09:23)
[2016-12-31] MEDS: FUROSEMIDE 40 MG TABLET PO SCH (09:23)
[2016-12-31] MEDS: SERTRALINE 100 MG TABLET PO SCH (09:23)
[2016-12-31] MEDS: PANTOPRAZOLE 40 MG TABLET PO SCH (09:23)
[2016-12-31] MEDS ORDERED: POTASSIUM CHLORIDE RIDER 10 MEQ in PREMIX 1 EACH IV PRN (09:45)
[2016-12-31] MEDS ORDERED: LOPERAMIDE 2 MG CAPSULE PO PRN (10:18)
--- NOTE | 2016-12-31 11:40 | Gastrointestinal Progress Note ---
Assessment and Plan (1) Diarrhea Status: Chronic Assessment and plan: 12/31-continued diarrhea stools. Restart Imodium at 1 daily. Check stool studies. Plan an addendum to followed by Dr. Donnelly. 12/30-3 year history of multiple diarrhea stools daily without associated symptoms other than nausea at times. Last colonoscopy 5 years ago. Noted to be scheduled for outpatient colonoscopy today however events noted as below with cardiac catheterization and resumption of Brilinta. History of negative stool studies in the past. Plan an addendum to followed by Dr. Donnelly. Current Visit: Yes Gastroenterology - PN: Subj Interval history: CC: Diarrhea Patient is seen, awake and alert lying in bed with family at side. She was transferred to telemetry and states that she did rest well overnight. She is having continued diarrhea with up to 6 stools this morning. Her Imodium has been restarted it 1 daily. She denies any abdominal pain, nausea or vomiting. She is afebrile at this time. She is tolerating small amount of her diet. Abdomen is soft, nontender. ROS: Denies shortness of breath or chest pain Exam (Progress Note) - Constitutional Vitals: Period Temp Pulse Resp BP Sys/Montes Pulse Ox Last 24 Hr 97.7 F-98.6 F 80-90 16-20 83-122/37-57 94-100 - Other Additional findings: General appearance: normal weight, no acute distress - Head Head exam: Present: normal inspection, normocephalic - Eye Eye exam: Present: other (Lids and conjunctivae are unremarkable). Absent: scleral icterus - ENT ENT exam: Present: normal exam, normal oropharynx - Neck Neck exam: Present: normal inspection - Respiratory Respiratory exam: Present: clear to auscultation bilaterally. Absent: rales, rhonchi, wheezes - Cardiovascular Cardiovascular exam: Present: regular rate and rhythm. Absent: diastolic murmur , JVD, systolic murmur - GI/Abdominal GI/Abdominal exam: Present: normal bowel sounds, soft. Absent: ascites, distended, mass, organomegaly, tenderness - Extremities Exam Extremities exam: Present: normal inspection, full ROM - Back Exam Back exam: Present: normal inspection - Neurological Exam Neurological exam: Present: alert, oriented X3 - Psychiatric Psychiatric exam: Present: normal affect, normal mood - Skin Skin exam: Present: normal color, warm, dry Results - Labs CBC & BMP: 12/31/16 03:47 12/31/16 03:47 Lab Results: I have reviewed the past 24 hour labs Specialty Discharge - Follow Up or Referrals
--- NOTE | 2016-12-31 12:33 | Event Note ---
Patient was seen and examined this morning only telemetry unit. She is doing remarkably better. Without complaints. Right groin is soft without bleeding, hematoma and bruit. Without chest pain, heaviness and tightness. Chemistry was reviewed and her potassium was noted to be 2.8. I have discussed with Dr. Guerra and we will replace this with p.o. potassium. We will recheck her potassium at 5:00 this evening. If this has corrected she will be eligible for discharge at that time.
--- NOTE | 2016-12-31 14:36 | Discharge Summary ---
Hospital Course - Hospital Course Hospital Course: WALL ATTENDANT: DR. NGO PCP: DR. HAMILTON SUMMARY Ms. Zimmerman is a 71 year old female with known coronary artery disease, routinely followed by Dr. Ngo. Cardiac risk factors include: Known CAD, hypertension, dyslipidemia, family history of premature CAD and advanced age. Lifetime non-smoker. Past medical history includes: Vaginal cancer, now in remission. Status post CABG with SVG to LAD, [place] graft to circumflex and right MAK to RCA. [facility] September 2015 demonstrated 2 of 3 widely patent grafts, widely patent LAD graft stents. Severe left [place] coronary artery disease with an angiographically normal-appearing right coronary artery. Normal left ventricular size and function. Echocardiogram 10/2016 revealed normal LV function, low-grade mitral and tricuspid insufficiency. Patient presented to [facility] 12/30/16 with non-ST elevation [place] after holding her Brilinta for upcoming C scope. Subsequently, she was taken to the cardiac catheterization lab per Dr. Radha Guerra. She was noted to have 100% thrombotic occlusion with thrombus plaque in the previously deployed stents and the TRICIA graft from the aorta to the LAD. She is status post successful PCI with drug-eluting stent to this area 2. Dual antiplatelet therapy was reinitiated. This will need to be continued indefinitely given patient's acute stent thrombosis occurring greater than 1 year after drug- eluting stent. Originally, patient was having C scope for complaints of diarrhea. This hospitalization her diarrhea has been generally well controlled. However, she was concerned. Gastroenterology was asked to see her this hospitalization. Imodium was initiated. Stool studies ordered. Results pending. Patient has done well post heart catheterization. She is without chest pain, heaviness or tightness. Denies dyspnea. Troponin continues to trend down. Right groin soft without bleeding, hematoma and bruit. Distal pulses 2+. Patient has ambulated around the room without difficulty. Right groin has remained stable post ambulation. Right groin precautions have been reviewed with the patient. She verbalized understanding. I have also discussed with her in detail regarding the importance of absolute compliance with dual antiplatelet therapy. She verbalizes understanding. Her potassium was noted to be 2.8. She was asymptomatic. Without overt arrhythmia. This has since been replaced. Potassium at discharge will be increased to twice a day. She underwent echocardiogram which revealed mild ischemic cardiomyopathy of 40%. This has declined from her last echocardiogram performed October 2016 which revealed preserved LV function. Patient is on good medication regimen with beta blockade, ARB and diuretics. These will be continued at discharge. She will need repeat echocardiogram in approximately 3 months to reassess LV function. Blood pressure stable. Labs reviewed. Creatinine stable post catheterization. Patient is anxious for discharge home. Having felt that she has met maximal medical therapy, she will be discharged home in stable condition. Patient will be given a follow-up appoint with Dr. Ngo in 1 week for groin check, EKG, CBC and BMP. She has also been instructed to follow with her PCP Dr. Hamilton. Patient verbalizes understanding of discharge instructions and discharge medications. - Time spent with patient Time with patient DS: Greater than 30 minutes Diagnosis - Discharge Diagnosis (1) Non-ST elevated myocardial infarction Status: Resolved (2) Hypertension Status: Chronic (3) Coronary artery disease Status: Chronic (4) Dyslipidemia Status: Chronic (5) History of coronary artery bypass graft Status: Chronic (6) History of coronary artery stent placement Status: Chronic (7) Tachycardia Status: Resolved (8) Ischemic cardiomyopathy Status: Acute (9) Diarrhea Status: Resolved Specialty Discharge - Follow Up or Referrals Follow up with: Rommel Donnelly MD [Physician] - (3 weeks to 1 month ) Sean Hamilton MD [Physician] - Joss Ngo MD [Physician] - 1 Week (EKG, CBC, BMP.) Discharge Plan - Discharge Data Disposition: Disch To Home/Self Care Condition at Discharge: Stable Discharge Diet: heart healthy, low fat, low cholesterol, low salt diet Activity: no lifting (Avoid heavy lifting and squatting 1 week.), other Hygiene: may shower, other (Avoid baths for 1 week. May shower.) Weight Bearing at Discharge: weight bear as tolerated, other (Post cath expectations.) Driving: other (Post cath expectations.) Contact your physician if you experience:: fever over 101, Difficulty voiding, Redness or swelling, Nausea/Vomiting, Shortness of breath, Bleeding, pain uncontrolled by pain medications - Discharge Medications New Isosorbide Mononitrate [Imdur] 30 mg PO DAILY #30 tablet Loperamide Cap [Imodium Cap] 2 mg PO DAILY PRN #30 capsule PRN Reason: Diarrhea Potassium Chloride Cap/Tab [K Dur] 20 meq PO BID #60 tablet Continue Ticagrelor [Brilinta] 90 mg PO BID Sertraline HCl 100 mg PO DAILY Ranolazine [Ranexa] 500 mg PO BID Pantoprazole Tab [Protonix Tab] 40 mg PO DAILY Losartan Potassium 25 mg PO DAILY Furosemide Tab [Lasix Tab] 40 mg PO DAILY Desloratadine [Clarinex] 5 mg PO DAILY PRN PRN Reason: Allergy Symptoms Carvedilol [Coreg] 6.25 mg PO BID busPIRone [Buspar] 5 mg PO TID Aspirin EC Tab 81 mg PO BEDTIME Nitroglycerin [Nitroglycerin SL Tab] 0.4 mg SL Q5M PRN #100 tablet PRN Reason: chest discomfort Atorvastatin Calcium 10 mg PO DIRECTED Discontinued Potassium Chloride [Klor-Con M20] 20 meq PO DAILY Isosorbide Mononitrate [Imdur] 120 mg PO DAILY - Follow Up or Referral Follow Up: Rommel Donnelly MD [Physician] - (3 weeks to 1 month ) Sean Hamilton MD [Physician] - Joss Ngo MD [Physician] - 2 Weeks (EKG, BMP.) - Forms/Instructions Instructions: Myocardial Infarction (GEN), Coronary Artery Disease (GEN), Left Heart Catheterization (DC), Heart Healthy Diet (GEN), Coronary Intravascular Stent Placement (DC) Exam - Constitutional Vitals: Period Temp Pulse Resp BP Sys/Montes Pulse Ox Last 24 Hr 97.7 F-98.6 F 73-86 16-20 90-122/45-57 93-100 Exam: General: Appears well with no apparent distress. Pleasant and cooperative. Appears comfortable. HEENT: PERRL, normocephalic, atraumatic. Mucous membranes moist. No jaundice noted. Conjunctiva moist and clear, sclerae anicteric Neck: No JVD/HJR, no thyromegaly or lymphadenopathy noted. No carotid bruit appreciated Cardiac: Regular rate and rhythm. No murmur rub or gallop. Lungs: Clear to auscultation without accessory muscle use to assist the respiratory pattern. Not requiring oxygen. Abdomen: Soft, bowel sounds normoactive. Nontender and nondistended. No abdominal bruit or thrill noted. No masses noted. Extremities: No clubbing, cyanosis noted. No edema noted. Upper extremity pulses 2+. Lower extremity pulses 2+. Capillary refill less than 3 seconds. Right groin soft without bleeding, hematoma and bruit. Distal pulses 2+. Skin: No unusual lesions or rashes. No skin breakdown appreciated. Neuro: Awake, alert and oriented 3. Moves all extremities well without hemiparesis or paralysis. No essential tremor is appreciated. Discharge Results Procedures and tests throughout hospitalization: Pending Orders 12/29/16 09:17 CL heart Routine 12/31/16 11:40 Stool Culture Routine Stool for WBCs Routine stool [C. Diff Toxins A & B] Routine 12/31/16 17:00 Potassium Routine 01/01/17 04:00 BMP w/ Mg [Basic Metabolic Panel w/Mg] IN AM Basic Metabolic Panel IN AM Comp Blood Count Auto Diff IN AM Magnesium IN AM Labs on day of discharge: Labs from last 24 hours 12/31/16 12/31/16 12/31/16 11:00 10:53 03:47 WBC RBC Hgb Hct MCV MCH MCHC RDW Plt Count MPV Neut % (Auto) Lymph % (Auto) [place] % (Auto) Eos % (Auto) Baso % (Auto) Neut # (Auto) Lymph # (Auto) [place] # (Auto) Eos # (Auto) Baso # (Auto) Immature Gran % Nucleated RBC % Immature Gran # Nucleated RBCs # Immature Plt Fraction Sodium 142 Potassium 3.3 L 2.8 L Chloride 104 Carbon Dioxide 31 Anion Gap 9.8 BUN 13 Creatinine 0.70 GFR Calculation 91 BUN/Creatinine Ratio 18.00 Glucose 96 Calculated Osmolality 282.1 Calcium 8.2 L Magnesium 2.2 Total Creatine Kinase 125 D CK-MB (CK-2) 3.4 D Troponin I 9.610 H D 12/31/16 03:47 WBC 8.4 RBC 4.01 Hgb 11.8 L Hct 35.8 MCV 89.3 MCH 29 MCHC 33.0 RDW 13.4 Plt Count 177 MPV 9.8 Neut % (Auto) 75.1 H Lymph % (Auto) 11.5 L [place] % (Auto) 11.9 Eos % (Auto) 1.1 Baso % (Auto) 0.2 Neut # (Auto) 6.3 Lymph # (Auto) 1.0 L [place] # (Auto) 1.0 H Eos # (Auto) 0.1 Baso # (Auto) 0.0 Immature Gran % 0.2 Nucleated RBC % 0.0 Immature Gran # 0.02 Nucleated RBCs # 0.00 Immature Plt Fraction 0.0 Sodium Potassium Chloride Carbon Dioxide Anion Gap BUN Creatinine GFR Calculation BUN/Creatinine Ratio Glucose Calculated Osmolality Calcium Magnesium Total Creatine Kinase CK-MB (CK-2) Troponin I - Imaging and Cardiology Cardiology Procedure: report reviewed by me DS: Provider Date of admission: 12/28/16 23:06 Primary care physician: . No PCP Attending physician on admission: Rayshawn Gabriel MD Consults: 12/29/16 10:33 Consult to Cardiac Rehabilitation [CONS] Routine Reason for Cardiac Rehabilitation: Risk Factor Modification Other Consult Comment: Evaluate and recommend 12/30/16 07:43 Consult to Physician [CONS] Routine Comment: Diarrhea, known to you. sched. for scope this week Consulting Provider: Rommel Donnelly 12/30/16 11:18 Consult to Physician [CONS] Routine Comment: Consulting Provider: Consulting Provider Notified: Yes Consult to Specialist Group: Gastroenterology Person Notified: viola Date Notified: 12/30/16 Time Notified: 11:15 Discharging clinician: Kenzie Shepard NP Expected date of discharge: 12/31/16
[2016-12-31] MEDS ORDERED: CARVEDILOL 6.25 MG TABLET PO SCH (15:25)
[2016-12-31 17:18] VITALS: BP 83/46
[2016-12-31] MEDS ORDERED: MAGNESIUM OXIDE 400 MG TABLET PO SCH (21:00)
[2016-12-31] MEDS ORDERED: POTASSIUM CHLORIDE 20 MEQ TABLET PO SCH (21:00)
[2017-01-01] MEDS ORDERED: LOPERAMIDE 2 MG CAPSULE PO SCH (09:00)
== END 2016-12-31 18:24 | disposition home or self-care (01) | DRG 246 ==
LOC: EDBD → EDUNIT# → N.ED 21:36 → N.EDINP 23:06 → N.ICU 12-29 00:59 → N.TELEN 12-30 16:54
PROVIDERS: ADMIT Internal Medicine Clinical Cardiac Electrophysiology; ATTEND Internal Medicine Clinical Cardiac Electrophysiology
PROC: CLDESPG (ICD-10-PCS; 2016-12-29 10:15)

== ENCOUNTER 2018-01-25 05:10 | Inpatient (IN) ==
[2018-01-15 11:23] LABS: Apearance,Urine CLEAR (Clear); Bacteria,Urine Occasional /HPF (Few); Bilirubin,Urine Negative (Negative); Blood, Urine Negative (Negative); Glucose,Urine (UA) Negative (Negative); Ketones,Urine Negative (Negative); Nitrite,Urine Negative (Negative); Protein,Urine Negative; RBC,Urine 1 /HPF (0-4); Squamous Epithelial Cell,Urine Occasional /HPF (0-10); Urine Color Yellow (Yellow); Urine Specific Gravity 1.019 (1.001-1.035); Urine Urobilinogen < 2.0 EU/DL (0.2-1.0); WBC,Urine 1 /HPF (0-6)
[2018-01-15 11:24] LABS: Basophils % 0.6 % (0.0-0.8); Eosinophils # 0.2 10*3/uL (0.0-0.87); Eosinophils % 3.8 % (0.00-10.9); Hematocrit 41.5 VOL% (35.7-47.0); Hemoglobin 13.4 GM/DL (12.0-16.0); Immature Granulocytes % 0.2 %; Immature Granulocytes Absolute 0.01 #; Lymphocytes % 20.7 % (21.3-54.2); Mean Corpuscular HGB Conc 32.3 GM/DL (32-36); Mean Corpuscular Hemoglobin 30 PG (27-34); Mean Corpuscular Volume 93.7 FL (87-102); Mean Platelet Volume 9.8 FL (9.6-12.0); Monocytes # 0.5 10*3/uL (0.11-0.8); Monocytes % 9.8 % (1.7-12.7); Neutrophils # 3.1 10*3/uL (1.4-7.4); Neutrophils % 64.9 % (38.7-73.9); Platelet Count 236 T/CUMM (130-400); Red Blood Count 4.43 MC/CUMM (3.8-5.5); Red Cell Distribution Width 13.3 % (9.3-17.3); White Blood Count 4.8 T/CUMM (4-12)
[2018-01-15 11:43] LABS: Albumin 3.6 G/DL (3.4-5.0); Bilirubin,Total 0.5 MG/DL (0.2-1.0); Calcium 8.9 MG/DL (8.5-10.1); Osmolality,Calculated 286.1 MOS/KG (273-304); Potassium 4.4 MMOL/L (3.5-5.1); Total Protein 6.9 G/DL (6.4-8.3)
[2018-01-15 12:28] LABS: INR 0.9; PT Patient Result 9.9 SECS; Partial Thromboplastin Time 28.5 SECS (0-40)
[2018-01-25] MEDS ORDERED: ceFAZolin 1,000 MG VIAL ONE (06:00)
[2018-01-25] MEDS ORDERED: VANCOMYCIN INJ 1,000 MG in SODIUM CHLORIDE 0.9% 250 ML IV ONE (06:00)
[2018-01-25] MEDS ORDERED: ceFAZolin 1,000 MG in SYRINGE 1 EACH IV ONE (06:00)
[2018-01-25] MEDS ORDERED: VANCOMYCIN 1,000 MG VIAL ONE (06:00)
[2018-01-25] MEDS ORDERED: BACITRACIN OINT 0.9 GM PACK TOP ONE (06:47)
[2018-01-25] MEDS ORDERED: LACTATED RINGERS 1,000 ML IV SCH (07:00)
[2018-01-25] MEDS ORDERED: TRANEXAMIC ACID 1,000 MG/10 ML VIAL ONE (08:45)
[2018-01-25] MEDS ORDERED: ROPIVACAINE 0.5% 30 ML VIAL ONE ×2 (08:53→12:45)
[2018-01-25] MEDS ORDERED: fentaNYL 100 MCG/2 ML VIAL ONE (10:03)
[2018-01-25] MEDS ORDERED: MIDAZOLAM 2 MG/2 ML VIAL ONE (10:03)
[2018-01-25] MEDS ORDERED: NITROGLYCERIN SL 0.4 MG TABLET SL PRN (10:18)
[2018-01-25] MEDS ORDERED: LOPERAMIDE 2 MG CAPSULE PO PRN (10:18)
[2018-01-25] MEDS ORDERED: oxyCODONE IR 5 MG TABLET PO PRN ×2 (10:19)
[2018-01-25] MEDS ORDERED: ZALEPLON 5 MG CAPSULE PO PRN (10:19)
[2018-01-25] MEDS ORDERED: MAGNESIUM HYDROXIDE SUSP 30 ML UDCUP PO PRN (10:19)
[2018-01-25] MEDS ORDERED: ONDANSETRON 4 MG/2 ML VIAL ONE ×2 (11:47→13:13)
[2018-01-25] MEDS ORDERED: HYDROmorphone 2 MG/1 ML VIAL ONE (11:47)
[2018-01-25] MEDS: HYDROmorphone 2 MG/1 ML VIAL IV PRN ×3 (11:50→12:10)
[2018-01-25] MEDS ORDERED: ONDANSETRON 4 MG/2 ML VIAL IV PRN (12:08)
[2018-01-25] MEDS ORDERED: LIDOCAINE 50 MG/5 ML SYRINGE ONE (12:46)
[2018-01-25] MEDS ORDERED: PROPOFOL 200 MG/20 ML VIAL IV ONE (13:13)
[2018-01-25] MEDS ORDERED: ETOMIDATE 40 MG/20 ML VIAL IV ONE (13:13)
[2018-01-25] MEDS ORDERED: SODIUM CHLORIDE 0.9% 100 ML IV ONE (13:14)
[2018-01-25] MEDS ORDERED: LACTATED RINGERS 1,000 ML IV ONE (13:14)
[2018-01-25] MEDS ORDERED: ACETAMINOPHEN 1,000 MG/100 ML VIAL IV ONE (13:14)
[2018-01-25] MEDS ORDERED: PHENYLEPHRINE 1 MG/10 ML SYRINGE IV ONE (13:14)
[2018-01-25] MEDS: LACTATED RINGERS 1,000 ML IV SCH ×2 (15:07→21:16)
[2018-01-25] MEDS: KETOROLAC 15 MG/1 ML VIAL IV SCH ×2 (15:27→21:09)
[2018-01-25] MEDS: ACETAMINOPHEN 500 MG TABLET PO SCH ×2 (15:27→21:13)
[2018-01-25] MEDS: busPIRone 5 MG TABLET PO SCH ×2 (15:28→21:13)
[2018-01-25] MEDS: ONDANSETRON 4 MG/2 ML VIAL IV PRN ×3 (15:29→23:29)
[2018-01-25] MEDS: MORPHINE 4 MG/1 ML VIAL IV PRN ×3 (16:13→21:11)
[2018-01-25] MEDS: ceFAZolin 1,000 MG in SYRINGE 1 EACH IV SCH (17:20)
[2018-01-25] MEDS: RANOLAZINE 500 MG TABLET PO SCH (21:13)
[2018-01-25] MEDS: DOCUSATE SODIUM 100 MG CAPSULE PO SCH (21:14)
[2018-01-25] MEDS: POTASSIUM CHLORIDE 20 MEQ TABLET PO SCH (21:14)
[2018-01-25] MEDS: CARVEDILOL 3.125 MG TABLET PO SCH (21:14)
[2018-01-25] MEDS: TICAGRELOR 90 MG TABLET PO SCH (21:14)
[2018-01-25] MEDS: diphenhydrAMINE CAP 25 MG CAPSULE PO PRN (21:14)
[2018-01-26] MEDS: KETOROLAC 15 MG/1 ML VIAL IV SCH ×2 (02:58→10:10)
[2018-01-26] MEDS: ACETAMINOPHEN 500 MG TABLET PO SCH ×2 (02:59→10:04)
[2018-01-26] MEDS: ceFAZolin 1,000 MG in SYRINGE 1 EACH IV SCH (02:59)
[2018-01-26] MEDS: MORPHINE 4 MG/1 ML VIAL IV PRN ×4 (03:00→21:41)
[2018-01-26] MEDS: ONDANSETRON 4 MG/2 ML VIAL IV PRN (03:10)
[2018-01-26] MEDS: LACTATED RINGERS 1,000 ML IV SCH ×2 (04:15→06:06)
[2018-01-26] MEDS: diphenhydrAMINE CAP 25 MG CAPSULE PO PRN (06:07)
[2018-01-26 06:30] LABS: Basophils % 0.3 % (0.0-0.8); Eosinophils # 0.1 10*3/uL (0.0-0.87); Eosinophils % 1.1 % (0.00-10.9); Hematocrit 31.5 VOL% (35.7-47.0); Hemoglobin 9.6 GM/DL (12.0-16.0); Immature Granulocytes % 0.1 %; Immature Granulocytes Absolute 0.01 #; Lymphocytes # 0.9 10*3/uL (1.4-4.0); Mean Corpuscular HGB Conc 30.5 GM/DL (32-36); Mean Corpuscular Hemoglobin 29 PG (27-34); Mean Corpuscular Volume 95.5 FL (87-102); Mean Platelet Volume 10.4 FL (9.6-12.0); Monocytes # 0.9 10*3/uL (0.11-0.8); Monocytes % 12.2 % (1.7-12.7); Neutrophils # 5.6 10*3/uL (1.4-7.4); Neutrophils % 74.3 % (38.7-73.9); Platelet Count 198 T/CUMM (130-400); Red Cell Distribution Width 13.6 % (9.3-17.3); White Blood Count 7.5 T/CUMM (4-12)
[2018-01-26 06:42] LABS: Osmolality,Calculated 284.1 MOS/KG (273-304); Potassium 3.7 MMOL/L (3.5-5.1)
[2018-01-26] MEDS ORDERED: ATORVASTATIN 20 MG TABLET PO SCH ×2 (09:00→21:00)
[2018-01-26] MEDS ORDERED: ASPIRIN EC 325 MG TABLET PO SCH (09:00)
[2018-01-26] MEDS: SERTRALINE 100 MG TABLET PO SCH (09:57)
[2018-01-26] MEDS: ISOSORBIDE MONONITRATE 30 MG TABLET PO SCH (09:58)
[2018-01-26] MEDS ORDERED: ACETAMINOPHEN 500 MG TABLET PO ONE (10:00)
[2018-01-26] MEDS ORDERED: KETOROLAC 15 MG/1 ML VIAL IV ONE (10:00)
[2018-01-26] MEDS: busPIRone 5 MG TABLET PO SCH ×3 (10:01→21:40)
[2018-01-26] MEDS: TICAGRELOR 90 MG TABLET PO SCH ×2 (10:02→21:40)
[2018-01-26] MEDS: ASPIRIN EC 81 MG TABLET PO SCH (10:02)
[2018-01-26] MEDS: RANOLAZINE 500 MG TABLET PO SCH ×2 (10:03→21:40)
[2018-01-26] MEDS: FERROUS SULFATE 325 MG TABLET PO SCH (10:03)
[2018-01-26] MEDS: PANTOPRAZOLE 40 MG TABLET PO SCH (10:03)
[2018-01-26] MEDS: POTASSIUM CHLORIDE 20 MEQ TABLET PO SCH ×2 (10:04→21:41)
[2018-01-26] MEDS: OLMESARTAN 20 MG TABLET PO SCH (10:13)
[2018-01-26] MEDS: DOCUSATE SODIUM 100 MG CAPSULE PO SCH ×3 (10:14→21:45)
[2018-01-26] MEDS: CARVEDILOL 3.125 MG TABLET PO SCH ×2 (10:14→21:40)
[2018-01-26] MEDS: FUROSEMIDE 40 MG TABLET PO SCH (10:14)
[2018-01-26] MEDS: POLYCARBOPHIL 625 MG TABLET PO SCH (10:25)
[2018-01-26] MEDS: LOPERAMIDE 2 MG CAPSULE PO PRN ×2 (14:53→21:40)
[2018-01-26] MEDS: DESITIN 4OZ/NYSTATIN 15 GRAM MIXTURE PASTE TOP SCH ×2 (17:58→21:42)
[2018-01-27] MEDS: ONDANSETRON 4 MG/2 ML VIAL IV PRN (02:33)
[2018-01-27] MEDS: MORPHINE 4 MG/1 ML VIAL IV PRN (02:33)
[2018-01-27 05:15] LABS: Basophils % 0.2 % (0.0-0.8); Eosinophils # 0.1 10*3/uL (0.0-0.87); Eosinophils % 1.1 % (0.00-10.9); Hematocrit 29.7 VOL% (35.7-47.0); Hemoglobin 8.9 GM/DL (12.0-16.0); Immature Granulocytes % 0.3 %; Immature Granulocytes Absolute 0.03 #; Lymphocytes # 0.7 10*3/uL (1.4-4.0); Lymphocytes % 7.6 % (21.3-54.2); Mean Corpuscular Hemoglobin 29 PG (27-34); Mean Corpuscular Volume 95.8 FL (87-102); Mean Platelet Volume 10.7 FL (9.6-12.0); Monocytes # 0.9 10*3/uL (0.11-0.8); Monocytes % 9.4 % (1.7-12.7); Neutrophils # 7.7 10*3/uL (1.4-7.4); Neutrophils % 81.4 % (38.7-73.9); Platelet Count 190 T/CUMM (130-400); Red Cell Distribution Width 13.8 % (9.3-17.3); White Blood Count 9.5 T/CUMM (4-12)
[2018-01-27 07:25] VITALS: BP 122/59
[2018-01-27] MEDS: POLYCARBOPHIL 625 MG TABLET PO SCH (08:40)
[2018-01-27] MEDS: RANOLAZINE 500 MG TABLET PO SCH (08:40)
[2018-01-27] MEDS: PANTOPRAZOLE 40 MG TABLET PO SCH (08:40)
[2018-01-27] MEDS: ISOSORBIDE MONONITRATE 30 MG TABLET PO SCH (08:40)
[2018-01-27] MEDS: busPIRone 5 MG TABLET PO SCH (08:40)
[2018-01-27] MEDS: SERTRALINE 100 MG TABLET PO SCH (08:40)
[2018-01-27] MEDS: FERROUS SULFATE 325 MG TABLET PO SCH (08:40)
[2018-01-27] MEDS: FUROSEMIDE 40 MG TABLET PO SCH (08:40)
[2018-01-27] MEDS: DOCUSATE SODIUM 100 MG CAPSULE PO SCH (08:40)
[2018-01-27] MEDS: POTASSIUM CHLORIDE 20 MEQ TABLET PO SCH (08:41)
[2018-01-27] MEDS: TICAGRELOR 90 MG TABLET PO SCH (08:41)
[2018-01-27] MEDS: ASPIRIN EC 81 MG TABLET PO SCH (08:41)
[2018-01-27] MEDS: CARVEDILOL 3.125 MG TABLET PO SCH (08:41)
[2018-01-27] MEDS: OLMESARTAN 20 MG TABLET PO SCH (08:47)
== END 2018-01-27 10:45 | disposition home health service (06) | DRG 470 ==
LOC: N.OR 05:10 → N.SDSINP 05:11 → N.3E 13:33
PROVIDERS: ADMIT Orthopaedic Surgery; ATTEND Orthopaedic Surgery